=== PATIENT | male | born 1975 | race Caucasian/White ===

== ENCOUNTER 2018-12-05 16:31 | Inpatient (IN) | payer OTHER ==
[~2018-12-05] VITALS: Ht 170.2 cm; Wt 86.5 kg
[2018-12-05] MEDS ORDERED: VENL25TA47 PO (16:41)
[2018-12-05] MEDS ORDERED: CALC-1085 PO (16:41)
[2018-12-05] MEDS ORDERED: TRAZ-220 PO (16:41)
[2018-12-05] MEDS ORDERED: ATOR20TA86 PO (16:41)
[2018-12-05 18:50] LABS: BASOPHILS % (AUTO) 0.6 % (0.0-2.0); EOSINOPHILS % (AUTO) 1.6 % (1.0-6.0); HEMOGLOBIN 12.1 g/dL (13.5-17.5); LYMPHOCYTES # (AUTO) 1.6 K/uL (1.0-4.8); LYMPHOCYTES % (AUTO) 33.9 % (22.0-44.0); MEAN CORPUSCULAR HEMOGLOBIN 29.6 pg (26.0-34.0); MEAN CORPUSCULAR HGB CONC 32.6 G/dL (31.0-37.0); MEAN CORPUSCULAR VOLUME 91 fL (80-100); MONOCYTES # (AUTO) 0.4 K/uL (0.1-1.0); MONOCYTES % (AUTO) 7.5 % (2.0-9.0); NEUTROPHILS # (AUTO) 2.7 K/uL (1.8-7.7); NEUTROPHILS % (AUTO) 56.4 % (40.0-70.0); PLATELET COUNT (AUTO) 144 K/uL (150-450); RED BLOOD CELL COUNT(AUTO) 4.07 MIL/uL (4.50-5.90); RED CELL DISTRIBUTION WIDTH 13.1 % (11.5-14.5)
[2018-12-05 18:58] LABS: CALCIUM, TOTAL 9.1 mg/dL (8.8-10.5); CREATININE 1.99 mg/dL (0.60-1.30); POTASSIUM 4.7 mmol/L (3.5-5.1)
[2018-12-05 19:02] LABS: PROTHROMBIN TIME 10.4 SEC (9.4-11.6)
[2018-12-05 19:04] LABS: ALBUMIN 3.4 g/dL (3.4-5.0); BILIRUBIN,TOTAL 0.3 mg/dL (0.1-1.0); TOTAL PROTEIN, SERUM 7.3 g/dL (6.4-8.2)
[2018-12-05] MEDS ORDERED: CefTRIAXone 1 GM/DEXTROSE 50 ML IV ONE (20:15)
[2018-12-05] MEDS ORDERED: ACETAMINOPHEN 325 MG TABLET PO PRN (21:00)
[2018-12-05] MEDS ORDERED: 0.9% SODIUM CHLORIDE 10 ML SYRINGE IVP PRN ×2 (21:00→22:30)
[2018-12-05 22:18] VITALS: BP 127/75
[2018-12-05] MEDS ORDERED: ZOLPIDEM TARTRATE 5 MG TABLET PO PRN (22:30)
[2018-12-05] MEDS ORDERED: ONDANSETRON HCL 4 MG/2 ML VIAL IVP PRN (22:30)
[2018-12-05] MEDS: TraZODone HCL 100 MG TABLET PO SCH ×2 (23:00→23:25)
[2018-12-05] MEDS: HEPARIN SODIUM,PORCINE 5,000 UNITS/ML VIAL SQ SCH (23:25)
[2018-12-05] MEDS: VENLAFAXINE HCL 50 MG TABLET PO SCH (23:25)
[2018-12-06 04:18] VITALS: BP 149/90
[2018-12-06 05:35] LABS: AMPHET/METH SCREEN,URINE NEGATIVE (NEGATIVE); BARBITURATE SCREEN, URINE NEGATIVE (NEGATIVE); BENZODIAZEPINES SCREEN,URINE NEGATIVE (NEGATIVE); CANNABINOID SCREEN,URINE POSITIVE (NEGATIVE); COCAINE SCREEN,URINE NEGATIVE (NEGATIVE); METHADONE SCREEN, URINE POSITIVE (NEGATIVE); OPIATE SCREEN,URINE NEGATIVE (NEGATIVE)
[2018-12-06 05:36] LABS: PHENCYCLIDINE SCREEN,URINE NEGATIVE (NEGATIVE)
[2018-12-06 07:10] VITALS: BP 132/75
[2018-12-06] MEDS: HEPARIN SODIUM,PORCINE 5,000 UNITS/ML VIAL SQ SCH (08:56)
[2018-12-06] MEDS: CALCIUM OYSTER SHELL 250 MG-VIT D3 125 UNITS TABLET PO SCH (08:57)
[2018-12-06] MEDS: VENLAFAXINE HCL 50 MG TABLET PO SCH ×2 (08:57→20:38)
[2018-12-06] MEDS: PANTOPRAZOLE SODIUM 40 MG DR TABLET PO SCH (08:57)
[2018-12-06] MEDS: ATORVASTATIN CALCIUM 20 MG TABLET PO SCH (08:57)
[2018-12-06] MEDS: METHADONE HCL 10 MG TABLET PO SCH (09:06)
[2018-12-06 11:25] VITALS: BP 129/76
[2018-12-06] MEDS: SODIUM CHLORIDE 0.9% 1,000 ML IV SCH (12:25)
[2018-12-06 15:10] VITALS: BP 152/91
[2018-12-06] MEDS ORDERED: CefTRIAXone 1 GM/DEXTROSE 50 ML IV SCH (20:00)
[2018-12-06 20:34] VITALS: BP 140/80
[2018-12-06] MEDS: CARVEDILOL 3.125 MG TABLET PO SCH (20:38)
[2018-12-06 23:02] VITALS: BP 146/76
[2018-12-07] MEDS ORDERED: SODIUM CHLORIDE 0.9% 1,000 ML IV ONE ×2 (02:09→08:42)
[2018-12-07] MEDS: SODIUM CHLORIDE 0.9% 1,000 ML IV SCH (02:13)
[2018-12-07 04:32] VITALS: BP 137/80
[2018-12-07] MEDS: METHADONE HCL 10 MG TABLET PO SCH (07:51)
[2018-12-07] MEDS: CARVEDILOL 3.125 MG TABLET PO SCH (07:51)
[2018-12-07] MEDS: CALCIUM OYSTER SHELL 250 MG-VIT D3 125 UNITS TABLET PO SCH (07:51)
[2018-12-07] MEDS: ATORVASTATIN CALCIUM 20 MG TABLET PO SCH (07:51)
[2018-12-07] MEDS: PANTOPRAZOLE SODIUM 40 MG DR TABLET PO SCH (07:51)
[2018-12-07] MEDS: VENLAFAXINE HCL 50 MG TABLET PO SCH (07:53)
[2018-12-07 08:02] VITALS: BP 160/87
[2018-12-07] MEDS ORDERED: CLIN300C3 PO (10:12)
== END 2018-12-07 13:30 | disposition home or self-care (01) | DRG 383 ==
LOC: EMS 16:33 → 4E 21:11
PROVIDERS: ADMIT Internal Medicine; ATTEND Internal Medicine
DX: L03.115 Cellulitis of right lower limb (principal); N17.9 Acute kidney failure, unspecified; E78.00 Pure hypercholesterolemia, unspecified; I10 Essential (primary) hypertension; Z87.891 Personal history of nicotine dependence; Z91.19 Patient's noncompliance with other medical treatment and regimen
CPT/HCPCS: 85651; 86140; 87040; 87081; G0378; J0696; J1644; J7030

== ENCOUNTER 2020-12-31 09:00 | Emergency (ER) | payer OTHER ==
[~2020-12-31] VITALS: Ht 170.2 cm; Wt 95.5 kg
[~2020-12-31 09:00] MED LIST: ATOR20TA86 PO; CALC-1085 PO; CLIN300C3 PO; TRAZ-257 PO; VENL25TA47 PO
[2020-12-31] MEDS ORDERED: ONDANSETRON HCL 4 MG TABLET PO ONE (10:00)
[2020-12-31] MEDS ORDERED: ACETAMINOPHEN 325 MG TABLET PO ONE (10:00)
[2020-12-31] MEDS ORDERED: CloNIDine HCL 0.1 MG TABLET PO ONE (10:00)
[2020-12-31] MEDS ORDERED: IBUPROFEN 400 MG TABLET PO ONE (10:00)
[2020-12-31 10:10] LABS: COVID AG,FIA SOURCE NASOPHARYNGEAL
[2020-12-31] MEDS ORDERED: LOPERAMIDE HCL 2 MG CAPSULE PO ONE (12:30)
[2020-12-31 12:39] VITALS: BP 114/75
== END 2020-12-31 13:20 | disposition home or self-care (01) ==
LOC: EMS 09:00
DX: F11.23 Opioid dependence with withdrawal (principal); R19.7 Diarrhea, unspecified; R11.2 Nausea with vomiting, unspecified; F17.210 Nicotine dependence, cigarettes, uncomplicated; Z20.822 Contact with and (suspected) exposure to COVID-19
CPT/HCPCS: 87426; 99284; Q0162; U0003

== ENCOUNTER 2022-12-02 15:37 | Emergency (ER) | payer OTHER ==
[~2022-12-02] VITALS: Ht 170.2 cm; Wt 104.5 kg
[~2022-12-02 15:37] MED LIST changes: +ATOR20TA PO; -ATOR20TA86 PO; -CLIN300C3 PO; +CLIN300C58 PO
[2022-12-02] MEDS ORDERED: CARV3.1231 PO (15:44)
[2022-12-02] MEDS ORDERED: ATOR40TA71 PO (15:44)
[2022-12-02 15:45] VITALS: BP 155/88; PULSE 63; RESP 18; TEMP 98.1
== END 2022-12-02 16:59 | disposition left against medical advice (07) ==
LOC: EMS 15:37
DX: R07.9 Chest pain, unspecified (principal); E78.00 Pure hypercholesterolemia, unspecified; F41.9 Anxiety disorder, unspecified; I10 Essential (primary) hypertension; I51.9 Heart disease, unspecified
CPT/HCPCS: 93005; 99283